=== PATIENT | female | born 1970 | race African-American/Black ===

== ENCOUNTER 2023-11-11 02:04 | Emergency (ER) | payer MEDICAID ==
[~2023-11-11] VITALS: Ht 182.9 cm; Wt 63.0 kg
[2023-11-11 02:20] VITALS: BP 107/57; PULSE 107; TEMP 98.1; O2SAT 95
== END 2023-11-11 04:35 | disposition left against medical advice (07) ==
LOC: ER 02:20
DX: M79.672 Pain in left foot (principal); Z53.21 Procedure and treatment not carried out due to patient leaving prior to being seen by health care provider
CPT/HCPCS: 73630

== ENCOUNTER 2023-11-13 17:31 | Emergency (ER) | payer MEDICAID ==
[~2023-11-13] VITALS: Ht 182.9 cm; Wt 61.2 kg
[2023-11-13 17:42] VITALS: BP 115/72; PULSE 95; RESP 16; TEMP 98.3; O2SAT 98
[2023-11-13] MEDS ORDERED: CEPH500C2 MT (20:12)
[2023-11-13] MEDS ORDERED: CLOT113C TP (20:12)
== END 2023-11-13 20:58 | disposition home or self-care (01) ==
LOC: ER 17:31
DX: M79.89 Other specified soft tissue disorders (principal)
CPT/HCPCS: 99281